=== PATIENT | female | born 1980 | race Caucasian/White ===

== ENCOUNTER 2024-03-23 10:05 | Outpatient (AMB) | payer OTHER, SELFPAY ==
[2024-03-23 09:34] VITALS: BP 140/80; PULSE 88; RESP 19; O2SAT 98; BMI 33.8
--- NOTE | 2024-03-23 10:24 | MHC.AM.SUB ---
Vital Signs 03/23/24 09:34 Height 5 ft 7 in Weight 216 lb BMI 33.8 BP 140/80 H Blood Pressure Location Rt brachial Position Sitting Respiration 19 Pulse 88 Pulse Source Pulse Oximeter Pulse Oximetry (%) 98 Intake Visit Reasons: Intake Allergies Penicillins [PENICILLINS] Allergy (Severe, Unverified 02/16/20 18:03) HIVES HPI HPI Intake: Details: Patient presents for evaluation and continuation of treatment for OUD She reports that she has been at patient at [facility] for some time now and looking to transfer care She is currently prescribed Zubsolv 5.7-1.4mg Has been on this medication for 3 years due to not tolerating suboxone (severe constipation and stomach issues) Substance use history obtained by RN and reviewed with patient --in remission from substance use for several years Medical History: engaged with primary care at [facility] reports hypertension diagnosis Labs completed on 12/25/23 via primary care SGOT 34 SGPT 64 Alk phos 71 tsh 2.96 Unclear BH diagnosis, but she reports being stable on current medication regimen Review of Systems Const Reports as per HPI and Reports no additional complaints Physical Exam Vital Signs: Last Vital Signs Pulse 88 03/23/24 09:34 Resp 19 03/23/24 09:34 BP 140/80 H 03/23/24 09:34 Pulse Ox 98 03/23/24 09:34 BMI result Body Mass Index 33.8 Const General: cooperative and healthy appearing Results Reviewed Results Reviewed: Laboratory Last Values POC Urine Buprenorphine Positive 03/23/24 09:56 POC Urine Morphine Negative 03/23/24 09:56 POC Urine Oxycodone Negative 03/23/24 09:56 POC Urine Methadone Negative 03/23/24 09:56 POC Urine Propoxyphene Negative 03/23/24 09:56 POC Urine Barbiturates Negative 03/23/24 09:56 POC U Tricyclic Antidpr Negative 03/23/24 09:56 POC Urine PCP Negative 03/23/24 09:56 POC Ur Amphetamines Negative 03/23/24 09:56 POC Ur Methamphetamine Negative 03/23/24 09:56 POC Urine MDMA Negative 03/23/24 09:56 POC Ur Benzodiazepine Positive 03/23/24 09:56 POC Urine Cocaine Negative 03/23/24 09:56 POC Ur Marijuana (THC) Positive 03/23/24 09:56 Assessment & Plan Assessment & Plan (1) Opioid use disorder, moderate, in sustained remission: Code(s): F11.21 - Opioid dependence, in remission Category: Medical Plan: continue Zubsolv at current dose follow up 4 weeks Orders: Orders AMB 14 Panel Urine Drug Screen 03/23/24 Z51.81 - Encounter for therapeutic drug level monitoring Medications: New buprenorphine-naloxone 5.7-1.4 mg (Zubsolv) 1 tab sublingual DAILY 30 tabs 0RF MAT Intake Nursing Intake Reason for visit: Transitioning care from another clinic to ours Are you currently using?: No What are you taking?: patient has not used in >5 years What is your source of income?: 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 [employer] What is your current relationship status?: Single Current PCP: Liliane Quiroz Date of last visit: last month Referral Source: Co worker who comes here as well Details: Substance Abuse History Substance Abuse History (includes route, frequency and quantity): Cocaine ( 7 years ago ) and Marijuana Social History Domestic Violence concerns: No Children: 2 children 20 years old and 21 years old Do you have a support system?: yes states her children are Current mode of transportation?: Car/Self Where are you currently residing?: Home LMP: March of 2024 Are you using contraception?: Yes (Has an IUD) IV Drug Use Have you ever shared needles?: No Have you ever belonged to a needle exchange program?: No Do you buy needles at a pharmacy?: No Have you ever overdosed?: No Have you ever been hospitalized for an overdose?: No Was Naloxone administered?: No Recovery History Have you had any periods of recovery?: Yes What is your longest time in recovery?: 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 If so, who?: Abdoulaye Adkins at [facility] for therapy BH diagnosis: Depression, Anxiety, OCD and ADHD History of other addictive behavior: Denies History of inpatient psychiatric hospitalization? If so, how many? Most Recent? Where?: No History of self harming thoughts?: No History of homicidal or suicidal intentions?: No Medical Conditions Endocarditis?: No Skin Infection: No Seizure related to withdrawal or overdose: No Head or brain injury: No Hepatitis A (if yes, have you been treated?): No Hepatitis B (if yes, have you been treated?): No Hepatitis C (if yes, have you been treated?): No HIV (if yes, have you been treated?): No TB (if yes, have you been treated?): No Other: Yes (Newly diagnosed HTN, Hx of gallbladder removal) Legal History History of incarceration: No Currently on parole or probation: No Court mandated programs: No Pending court cases: No DCF involvement: No
== END 2024-03-23 10:56 | disposition home or self-care (01) ==
PROVIDERS: PCP Internal Medicine; Visit Provider Nurse Practitioner Psychiatric/Mental Health
DX: F11.21 Opioid dependence, in remission (principal)
CPT/HCPCS: 99214

== ENCOUNTER → 2024-03-23 10:05 | Outpatient (BNVA) | payer OTHER, SELFPAY | PROVIDERS: PCP Internal Medicine; Visit Provider Nurse Practitioner Psychiatric/Mental Health | DX: F11.21 Opioid dependence, in remission (principal) | CPT/HCPCS: 80307; 99212 ==

== ENCOUNTER 2024-04-20 11:01 | Outpatient (AMB) | payer OTHER, SELFPAY ==
[2024-03-30 09:27] VITALS: BP 140/80; PULSE 88; RESP 20; O2SAT 98
--- NOTE | 2024-03-30 09:27 | MHC.AM.SUB ---
Vital Signs 03/30/24 09:27 BP 140/80 H Blood Pressure Location Lt brachial Position Sitting Respiration 20 Pulse 88 Pulse Source Pulse Oximeter Pulse Oximetry (%) 98 Oxygen Delivery Method Room Air Intake Visit Reasons: MAT Office Allergies Penicillins [PENICILLINS] Allergy (Severe, Unverified 02/16/20 18:03) HIVES
--- NOTE | 2024-04-20 11:08 | A.OFFVISCC_ITS ---
Vital Signs 03/30/24 09:27 BP 140/80 H Blood Pressure Location Lt brachial Position Sitting Respiration 20 Pulse 88 Pulse Source Pulse Oximeter Pulse Oximetry (%) 98 Oxygen Delivery Method Room Air Intake Visit Reasons: MAT Office Allergies Penicillins [PENICILLINS] Allergy (Severe, Unverified 02/16/20 18:03) HIVES HPI HPI MAT Office: Details: Patient presents for follow up Saw new psychiatrist and they changed Celexa to Zoloft 50mg Clonidine 0.1mg QHS --updated in med list [facility] in [place] for services No issues related to Zubsolv. Spent time reviewing ongoing anxiety and strategies for addressing this--provided patient with anxiety workbook Review of Systems Const Reports as per HPI and Reports no additional complaints Physical Exam Vital Signs: Last Vital Signs Pulse 88 03/30/24 09:27 Resp 20 03/30/24 09:27 BP 140/80 H 03/30/24 09:27 Pulse Ox 98 03/30/24 09:27 Oxygen Delivery Method Room Air 03/30/24 09:27 Const General: cooperative, healthy appearing and well groomed Nutritional Appearance: average body habitus Orientation/consciousness: patient oriented x3 Limitations: no limitations Neuro General: patient oriented x3 Psych Appearance: well kempt Speech and movement: Clear speech present and Pressured speech present Affect: Animated affect present Attitude: cooperative Thought process: Tangential thought process present Insight: Good insight present (Psych) Judgement: Good judgement present (Psych) Assessment & Plan Assessment & Plan (1) Opioid use disorder, moderate, in sustained remission: Code(s): F11.21 - Opioid dependence, in remission Category: Medical Plan: * continue zubsolv at current dose * follow up 4 weeks Medications: Refilled buprenorphine-naloxone 5.7-1.4 mg (Zubsolv) 1 tab sublingual DAILY 30 tabs 0RF
== END 2024-04-20 11:30 | disposition home or self-care (01) ==
PROVIDERS: PCP Internal Medicine; Visit Provider Nurse Practitioner Psychiatric/Mental Health
DX: F11.21 Opioid dependence, in remission (principal)
CPT/HCPCS: 99213

== ENCOUNTER → 2024-04-20 11:01 | Outpatient (BNVA) | payer OTHER, SELFPAY | PROVIDERS: PCP Internal Medicine; Visit Provider Nurse Practitioner Psychiatric/Mental Health | DX: F11.21 Opioid dependence, in remission (principal) | CPT/HCPCS: 99212 ==

== ENCOUNTER 2024-05-18 09:22 | Outpatient (AMB) | payer OTHER, SELFPAY ==
--- NOTE | 2024-05-18 09:29 | A.OFFVISCC_ITS ---
Intake Visit Reasons: MAT Allergies Penicillins [PENICILLINS] Allergy (Severe, Unverified 02/16/20 18:03) HIVES HPI HPI MAT: Details: Patient presents for follow up Currently prescribed Zubsolv 5.7-1.4mg No issues related to medication Spent some time reviewing strategies to address anxiety and panic sx reviewed reframing negative self talk still seeing therapist and psychiatrist--adjusting medications. Review of Systems Const Reports as per HPI and Reports no additional complaints Physical Exam Const General: cooperative, healthy appearing and well groomed Nutritional Appearance: average body habitus Orientation/consciousness: patient oriented x3 Limitations: no limitations Neuro General: patient oriented x3 Psych Appearance: well kempt Speech and movement: Clear speech present and Pressured speech present Affect: Animated affect present Attitude: cooperative Thought process: Tangential thought process present Insight: Good insight present (Psych) Judgement: Good judgement present (Psych) Assessment & Plan Assessment & Plan (1) Opioid use disorder, moderate, in sustained remission: Code(s): F11.21 - Opioid dependence, in remission Category: Medical Plan: * continue zubsolv at current dose * follow up 8 weeks Medications: Refilled buprenorphine-naloxone 5.7-1.4 mg (Zubsolv) 1 tab sublingual DAILY 30 tabs 1RF
== END 2024-05-18 10:27 | disposition home or self-care (01) ==
PROVIDERS: PCP Internal Medicine; Visit Provider Nurse Practitioner Psychiatric/Mental Health
DX: F11.21 Opioid dependence, in remission (principal)
CPT/HCPCS: 99213

== ENCOUNTER → 2024-05-18 09:22 | Outpatient (BNVA) | payer OTHER, SELFPAY | PROVIDERS: PCP Internal Medicine; Visit Provider Nurse Practitioner Psychiatric/Mental Health | DX: F11.21 Opioid dependence, in remission (principal); Z79.899 Other long term (current) drug therapy | CPT/HCPCS: 99212 ==

== ENCOUNTER 2024-08-10 11:09 | Outpatient (AMB) | payer OTHER, SELFPAY ==
--- NOTE | 2024-08-10 11:29 | A.OFFVISCC_ITS ---
Intake Visit Reasons: MAT Office Allergies Penicillins [PENICILLINS] Allergy (Severe, Unverified 02/16/20 18:03) HIVES HPI HPI MAT Office: Details: Patient presents for follow up Currently prescribed Zubsolv 5.7-1.4mg daily Tolerating current dose Does not a refill at this time Continues to see therapist and psychiatrist No questions or concerns at this time Review of Systems Const Reports as per HPI Psych Reports anxiety and Reports difficulty concentrating Physical Exam Const General: cooperative, healthy appearing and well groomed Nutritional Appearance: average body habitus Orientation/consciousness: patient oriented x3 Limitations: no limitations Neuro General: patient oriented x3 Psych Appearance: well kempt Speech and movement: Clear speech present and Pressured speech present Affect: Animated affect present Attitude: cooperative Thought process: Tangential thought process present Insight: Good insight present (Psych) Judgement: Good judgement present (Psych) Assessment & Plan Assessment & Plan (1) Opioid use disorder, moderate, in sustained remission: Code(s): F11.21 - Opioid dependence, in remission Category: Medical Plan: * continue zubsolv at current dose * follow up 8 weeks
--- OUTSIDE RECORDS SUMMARY | 2024-08-10 13:09 | XMS_ITS | Clinical Summary ---
Author Organization [address] Address [address] [place] [address] Phone Care Team Providers Care Rubber Compounder Mixer Name Role Phone Kishore Dockery MD Primary Care Provider Allergies Active Allergy Reactions Criticality Noted Date Comments Misoprostol 11/13/2016 Penicillin G Potassium Hives 02/26/2006 Sulfamethoxazole Hives High 03/18/2023 Sulfamethoxazole-Trimethoprim Hives High 2010 Trimethoprim Hives High 03/18/2023 Medications famotidine (PEPCID) 20 mg tablet TAKE 1 TABLET BY MOUTH TWICE A DAY 180 tablet 1 04/08/20 24 Active clonazePAM (KlonoPIN) 0.5 mg disintegrating tablet Take 1 tablet (0.5 mg total) by mouth 1 (one) time each day. Active amLODIPine-benazep ril (LotreL) 5-10 mg per capsule Take 1 capsule by mouth 1 (one) time each day. 30 capsule 11 04/12/20 24 025 Active mirtazapine (REMERON) 7.5 mg tablet TAKE 1 TABLET BY MOUTH EVERY DAY AT BEDTIME FOR 30 DAYS 03/25/20 23 Active buprenorphine-nalo xone (Zubsolv) 8.6-2.1 mg tablet, sublingual DISSOLVE 1 T UNT QD 02/23/20 Active copper (ParaGard T 380A) 380 square mm IUD 1 each by intrauterine route. 06/08/19 Active cloNIDine (CATAPRES) 0.1 mg tablet Take 1 tablet (0.1 mg total) by mouth 2 (two) times a day if needed. 03/30/20 Active Zoloft 50 mg tablet Take 1 tablet (50 mg total) by mouth 1 (one) time each day. 04/03/20 Active Active Problems Problem Noted Date Diagnosed Date Vitamin D deficiency 12/09/2023 HTN (hypertension) 02/13/2023 Mixed obsessional thoughts and acts 02/18/2018 Drug overdose 10/07/2017 Overview (04/19/2024): ER visit after her friend gave her some pills . + amphetamines with tox screen at ER. Elevated liver enzymes 05/21/2016 Bilateral carpal tunnel syndrome 05/20/2016 Anxiety 09/27/2012 Constipation 09/27/2012 Depression 09/27/2012 Opiate dependence 05/26/2011 Insomnia 03/15/2010 Moderate cervical dysplasia, histologically conf irmed 01/09/2010 Overview (04/19/2024): Laser Cervix 01/08, repeat Pap 04/10 ASCUS, 11/09 CAILIN 1, colpo benign and ECC neg repeat Pap every six months. Pap 08/2011 normal. Pap 03/2012 normal and HPV negative. Pap normal 09/27/12, repeat yearly for now Overweight (BMI 25.0-29.9) 01/29/2009 Heartburn 03/06/2008 Tobacco use disorder 02/07/2007 Encounters Date Type Department Care Team Description 06/27/2024 Telephone [facility] [address] [place] [address] Kishore Dockery MD from Last 3 Months Immunizations Name Administration Dates Next Due H1N1 Inj Preservative Free 04/12/2009 Influenza Quadravalent, MDCK , 0.5ml, preservative free (Flucelvax) 6mo and older 04/01/2023,03/17/2022 Influenza trivalent, 0.5mL, preservative free (Fluarix; FluLaval; Fluzone) ages 6mo and older (Afluria) 3 years and older 05/20/2016,02/22/2014,03/31/2012,2009 MMR, measles mumps and rubel la Live (Priorix; M-M-R II) 12mo and older 11/12/2006 PPD Test 11/12/2006 Td Tetanus diptheria (Tdvax) 7yo and older 02/26/2006 Tdap Tetanus diptheria acell ular pertussis (Boostrix; Adacel) 7yo and older 01/12/2014,08/20/2010 Surgical History Surgery Date Site/Laterality Comments CHOLECYSTECTOMY PROCEDURE: [place] LAPAROSCOPY SURG CHOLECYSTECTOMY; COMMENT: 2008 LASER ABLATION OF THE CERVIX 01/21/10 PROCEDURE: [place] CAUTERY CERVIX LASER ABLATION; COMMENT: Laser vaporization HGSIL OTHER SURGICAL HISTORY PROCEDURE: HISTORICAL D&C Medical History Medical History Date Comments Esophageal reflux DX:Esophageal reflux Anxiety state, unspecified DX:An xiety state, unspecified; COMMENT: sees Therapist/Psychiatrist Opiate dependence ([facility]) 05/26/2011 DX:O piate dependence ([facility]) Family History Medical History Relation Name Comments Other: dvt Daughter 1 Heart attack Father early fifties Hyperlipidemia Father Hypertension Father Other cancer Father melanoma Other: diverticulosis Mother Other: dvt Mother Breast cancer Neg Hx Colon cancer Neg Hx Ovarian cancer Neg Hx Uterine cancer Neg Hx Relation Name Status Comments Daughter 1 Alive 2002; A&W Daughter 2 Alive 2013; A&W Father Alive htn, cholestero l, mi at age 50 - patient is an only child Maternal Grandfather Maternal Grandmother Mother Alive diverticulitis Paternal Grandfather Paternal Grandmother Social History Tobacco Use Types Packs/Day Years Used Date Smoking Tobacco: Every Day Cigarettes Started: 06/01/1999; Last attempted to quit: 06/01/2021 Smokeless Tobacco: Current Tobacco Cessation:Ready to Q uit: Not Asked; Counseling Given: Not Answered Alcohol Use Standard Drinks/Week Comments Not Currently 0 (1 standard drink = 0.6 oz pur e alcohol) Housing Instability Answer Date Recorde d Are you worried that in the next 2 months you may not have stable housing? No 04/19/2024 Food Access & Nutrition Answer Date Rec orded Do you have access to a vari ety of food including fruits and vegetables? Yes 04/19/2024 Access to Healthcare Answer Date Record ed Within the last 3 months, ho w many times did you visit the emergency department for your medical care? 0 04/19/2024 Health Literacy Answer Date Recorded How often do you need to hav e someone help you when you read instructions, pamphlets, or other written material from your doctor or pharmacy? Never 04/19/2024 Caregiver: How often do you need to have someone help you when you read instructions, pamphlets, or other written material from your doctor or pharmacy? Not on file 04/19/2024 Financial Risk Answer Date Recorded How hard is it for you to pa y for the very basics like food, housing, medical care, and air conditioning / heating? Hard 04/19/2024 Transportation Answer Date Recorded Has the lack of transportati on kept you from meetings, work, or from getting things needed for daily living? No Has the lack of transportati on kept you from medical appointments or from getting medications? No 04/19/2024 Social Isolation Answer Date Recorded How often do you feel lonely or isolated from those around you? Sometimes 04/19/2024 Food Risk Answer Date Recorded Within the past 12 months we worried whether our food would run out before we got money to buy more. Often true 04/19/2024 Within the past 12 months th e food we bought just didn't last and we didn't have money to get more. Often true 04/19/2024 Dependent Care Answer Date Recorded Do you need help finding or paying for care for your loved ones. For example, children's counselor or elderly care for an older adult? Patient declined 04/19/2024 Education Answer Date Recorded Do you think completing more education or training, like finishing a GED, going to college, or learning a trade, would be helpful for you? Patient declined 04/19/2024 Employment and Income Answer Date Recor ded During the last four weeks, have you been actively looking for work? Patient declined 04/19/2024 Living Situation Answer Date Recorded What is your living situation? 1 06/19/2023 Comments No Sex and Gender Information Value Date Recorded Sex Assigned at Female 04/19/2024 10:08 AM EST Legal Sex Female 9:17 AM EST Gender Identity Female 04/19/2024 10:08 AM EST Sexual Orientation Straight 04/19/2024 10 :08 AM EST Obstetrics History Last Filed Vital Signs Vital Sign Reading Time Taken Comments Blood Pressure 136/82 04/20/2024 8:59 AM EST Pulse 108 03/09/2024 10:29 AM EDT Temperature 37.1 ??C (98.7 ??F) 04/20/2024 8:59 AM ES T Respiratory Rate 15 04/20/2024 8:59 AM EST Oxygen Saturation - - Inhaled Oxygen Concentration - - Weight 98.9 kg (218 lb) 04/20/2024 8:59 AM EST Height 172.7 cm (5' 8 ) 04/20/2024 8:59 AM EST Body Mass Index 33.15 04/20/2024 8:59 AM EST Plan of Treatment Health Maintenance Due Date Last Done Comments Breast Cancer Screening 1978 Hepatitis B Vaccines (1 of 3 - 19+ 3-dose series) 1997 Pneumococcal Vaccine: Pediatrics (0 to 5 Years) and At-Risk Patients (6 to 64 Years) (1 of 2 - PCV) 1997 Colorectal Cancer Screening: Colonoscopy 05/10/2022 HIV Screening 05/10/2022 DTaP,Tdap,and Td Vaccines (4 - Td or Tdap) 01/13/2024 01/12/2014, 08/20/2010, 02/26/2006 COVID-19 Vaccine ( - season) 2024 11/22/2020, 10/30/2020 Influenza Vaccine (#1) 2024 , 03/17/2022, 05/20/2016, Additional history exists Hypertension/CHF/CAD Annual BMP Blood Test 12/24/2024 12/25/2023, 12/25/2023, 12/09/2023 Depression Screening 04/19/2025 04/19/2024, 02/24/20 Social Influencers of Health Screening 04/19/2025 04/19/2024 Cervical Cancer Screening: HPV 02/14/2028 02/13/2023 Cholesterol Screening (Lipid Panel) 12/24/2028 12/25/2023, 12/25/2023 MMR Vaccines Aged Out 11/12/2006 No longer eligi ble based on patient's age to complete this topic Hepatitis C Screening Completed 03/17/2022 HIB Vaccines Aged Out No longer eligi ble based on patient's age to complete this topic HPV Vaccines Aged Out No longer eligi ble based on patient's age to complete this topic Hepatitis A Vaccines Aged Out No long er eligible based on patient's age to complete this topic IPV Vaccines Aged Out No longer eligi ble based on patient's age to complete this topic Meningococcal ACWY Vaccine Aged Out N o longer eligible based on patient's age to complete this topic Meningococcal B Vacine Aged Out No lo nger eligible based on patient's age to complete this topic RSV Immunization Patients Under 20 months Aged Out No longer eligible based on patient's age to complete this topic Varicella Vaccines Aged Out No longer eligible based on patient's age to complete this topic Procedures Procedure Name Priority Date/Time Associated Diagnosis Comments DEPRESSION SCREENING Routine 02/24/2024 ANNUAL BMP BLOOD TEST Routine 12/25/2023 LIPID PANEL Routine 12/25/2023 HPV Routine 02/13/2023 HEPATITIS C SCREENING Routine 03/17/2022 from Last 3 Months or Most Recently Relevant to Health Maintenance Results * Depression Screening (02/24/2024) Pathologist [facility] Depression Screening abstracted Historical Provider MD HEALTH MAINTENANCE Final Result * Annual BMP Blood Test (12/25/2023) Pathologist [facility] Annual BMP Blood Test abstracted Historical Provider MD HEALTH MAINTENANCE Final Result * (ABNORMAL) Lipid panel (12/25/2023) Pathologist [facility] LDL/HDL Ratio 4 0 - 4 Triglycerides 156(A) 0 - 150 mg/dL Cholesterol 196 0 - 200 mg/dL HDL 49 >=40 mg/dL LDL Cholesterol 116(A) 0 - 100 mg/dL Blood Venous blood specimen / Unknown Historical Provider LAB BLOOD ORDERABLES Oly l Result * Cervical Cancer Screening: HPV (02/13/2023) Pathologist [facility] Cervical Cancer Screening: HPV negative, abstracted Historical Provider HEALTH MAINTENANCE Final Result * Hepatitis C Screening (03/17/2022) Pathologist [facility] Hepatitis C Screening abstracted Historical Provider HEALTH MAINTENANCE Final Result from Last 3 Months or Most Recently Relevant to Health Maintenance Insurance [facility] [employer] Care Teams Rubber Compounder Mixer Relationship Specialty Start Date End Date Kishore Dockery MD [address] [place] [id number] PCP - General 05/05/23
--- OUTSIDE RECORDS SUMMARY | 2024-08-10 13:09 | XMS_ITS | Clinical Summary ---
Author Organization [facility] Address [address] [place] [address] Care Team Providers Care Vice President Quality Name Role Phone Beba Trujillo MD Primary Care Provider [phone] Allergies Active Allergy Reactions Criticality Noted Date Comments Penicillins 07/30/2022 Medications Medication Sig Dispensed Refills Start Date End Date Status citalopram (CeleXA) 20 MG tablet Take 1 tablet (20 mg total) by mouth daily. 0 Active vitamin D3 (cholecalciferol) 25 MCG (1000 UT) tablet Take 1 tablet (25 mcg total) by mouth daily. 0 Active amLODIPine (NORVASC) tablet 5 mg Take 2 tablets (10 mg total) by mouth daily. Amlodipine/benazapri l combination 0 Active Active Problems No known active problems Social History Tobacco Use Types Packs/Day Years Used Date Smoking Tobacco: Former Cigarettes 2021 Nicotine Inhalation Smokeless Tobacco: Current Tobacco Cessation:Ready to Q uit: Not Asked; Counseling Given: Not Answered Alcohol Use Standard Drinks/Week Comments Not Currently 0 (1 standard drink = 0.6 oz pur e alcohol) ONLY IN YOUNGER YEARS Sex and Gender Information Value Date Recorded Sex Assigned at Not on file Gender Identity Not on file Sexual Orientation Not on file Job Start Date Occupation Industry Not on file Not on file Not on file Last Filed Vital Signs Vital Sign Reading Time Taken Comments Blood Pressure 139/69 07/30/2022 2:33 PM EST Pulse 84 07/30/2022 2:33 PM EST Temperature 36.8 ??C (98.3 ??F) 07/30/2022 2:33 PM ES T Respiratory Rate - - Oxygen Saturation 100% 07/30/2022 2:33 PM EST Inhaled Oxygen Concentration - - Weight 91 kg (200 lb 9.6 oz) 07/30/2022 2:33 PM EST Height 172.7 cm (5' 8 ) 07/30/2022 2:33 PM EST Body Mass Index 30.5 07/30/2022 2:33 PM EST Plan of Treatment Health Maintenance Due Date Last Done Comments Hepatitis B Vaccines (1 of 3 - 3-dose series) 1978 Hepatitis C Screening 1978 COVID-19 Vaccine (#1) 03/15/1979 Depression Screening 1990 Preventative Health Evaluation 1996 Cervical Cancer Screening (Pap Smear) 09/14/1999 Colon Cancer Screening (Colonoscopy) 09/14/2023 DTap / Tdap / Td (3 - Td or Tdap) 01/13/2024 01/12/2014, 08/20/2010, 02/26/2006 Influenza Vaccine (#1) 2024 2, 05/20/2016, 02/22/2014, Additional history exists Pneumococcal Vaccine Aged Out No long er eligible based on patient's age to complete this topic RSV Ped < 20 months Aged Out No longe r eligible based on patient's age to complete this topic Care Teams Vice President Quality Relationship Specialty Start Date End Date Beba Trujillo MD PCP - General Internal Medicine 07/30/22
== END 2024-08-10 11:47 | disposition home or self-care (01) ==
PROVIDERS: PCP Internal Medicine; Visit Provider Nurse Practitioner Psychiatric/Mental Health
DX: F11.21 Opioid dependence, in remission (principal)
CPT/HCPCS: 99213

== ENCOUNTER → 2024-08-10 11:09 | Outpatient (BNVA) | payer OTHER, SELFPAY | PROVIDERS: PCP Internal Medicine; Visit Provider Nurse Practitioner Psychiatric/Mental Health | DX: F11.21 Opioid dependence, in remission (principal) | CPT/HCPCS: 99212 ==

== ENCOUNTER 2024-10-19 15:31 | Outpatient (AMB) | payer OTHER, SELFPAY ==
--- OUTSIDE RECORDS SUMMARY | 2024-10-19 15:33 | XMS_ITS | Clinical Summary ---
Author Organization [facility] Address [address] [place] [address] Care Team Providers Care Ammunition Assembly I Laborer Name Role Phone Beba Trujillo MD Primary Care Provider [phone] Allergies Active Allergy Reactions Criticality Noted Date [...] age to complete this topic Care Teams Ammunition Assembly I Laborer Relationship Specialty Start Date End Date Beba Trujillo MD PCP - General Internal Medicine 07/30/22
--- OUTSIDE RECORDS SUMMARY | 2024-10-19 15:33 | XMS_ITS | Clinical Summary ---
Author Organization [address] Address [address] [place] [address] Phone Care Team Providers Care Cardiac Nurse Name Role Phone Kishore Dockery MD Primary [...] mouth 1 (one) time each day. 04/03/20 24 Active ibuprofen (ADVIL,MOTRIN) 600 mg tablet Take 1 tablet (600 mg total) by mouth every 8 (eight) hours if needed for moderate pain. for pain 90 tablet 1 10/14/19 Active Active Problems Problem Noted Date Diagnosed Date Vitamin D deficiency 12/09/2023 HTN (hypertension) 02/13/2023 Mixed obsessional thoughts and acts 02/18/2018 Drug overdose 10/07/2017 Overview (04/19/2024): ER visit after her friend gave her some pills . + amphetamines with tox screen at ER. Elevated liver enzymes 05/21/2016 Bilateral carpal tunnel syndrome 05/20/2016 Anxiety 09/27/2012 Constipation 09/27/2012 Depression 09/27/2012 Opiate dependence ([facility] V24, [facility] V28) Insomnia 03/15/2010 Moderate cervical dysplasia, histologically conf irmed 01/09/2010 Overview (04/19/2024): Laser Cervix 01/08, repeat Pap 04/10 ASCUS, 11/09 CAILIN 1, colpo benign and ECC neg repeat Pap every six months. Pap 08/2011 normal. Pap 03/2012 normal and HPV negative. Pap normal 09/27/12, repeat yearly for now Overweight (BMI 25.0-29.9) 01/29/2009 Heartburn 03/06/2008 Tobacco use disorder 02/07/2007 Immunizations Name Administration Dates Next Due H1N1 [...] History Surgery Date Site/Laterality Comments CHOLECYSTECTOMY PROCEDURE: [place] LAPAROSCOPY SURG CHOLECYSTECTOMY; COMMENT: 2008 LASER ABLATION OF THE CERVIX 01/21/10 PROCEDURE: [place] CAUTERY CERVIX LASER ABLATION; COMMENT: Laser vaporization HGSIL OTHER SURGICAL HISTORY PROCEDURE: HISTORICAL D&C Medical History Medical History Date Comments Esophageal reflux DX:Esophageal reflux Anxiety state, unspecified DX:An xiety state, unspecified; COMMENT: sees Therapist/Psychiatrist Opiate dependence ([facility] V 24, [facility] V28) 05/26/2011 DX:Opiate dependence ([facility]) Family History Medical History Relation Name Comments [...] care for your loved ones. For example, professor of early childhood education or elderly care for an older adult? [...] 04/20/2024 8:59 AM EST Plan of Treatment Upcoming Encounters Date Type Department Care Team (Late st Contact Info) Description 11/09/2024 3:45 PM EDT Office Visit Adult Medicine [address] [address] Kishore Dockery MD [address] [place] [id number] Health Maintenance Due Date Last Done Comments Breast Cancer Screening 1978 Hepatitis A Vaccines (1 of 2 - Risk 2-dose series) 1997 Hepatitis B Vaccines (1 of 3 - 19+ 3-dose series) 1997 Pneumococcal Vaccine: Pediatrics (0 to 5 Years) and At-Risk Patients (6 to 64 Years) (1 of 2 - PCV) 1997 Colorectal Cancer Screening: Colonoscopy 05/10/2022 HIV Screening 05/10/2022 DTaP,Tdap,and Td Vaccines (4 - Td or Tdap) 01/13/2024 01/12/2014, 08/20/2010, 02/26/2006 COVID-19 Vaccine (3 - season) 2024 11/22/2020, 10/30/2020 Hypertension/CHF/CAD Annual BMP Blood Test 12/24/2024 12/25/2023, 12/25/2023, 12/09/2023 Influenza Vaccine (Season Ended) 2025 04/01/2023, 03/17/2022, 05/20/2016, Additional history exists Depression Screening 04/19/2025 04/19/2024, 02/24/20 24 Social Influencers of Health Screening 04/19/2025 04/19/2024 [...] age to complete this topic Meningococcal B Vaccine Aged Out No l onger eligible based on patient's age to complete [...] Health Maintenance Results * Depression Screening (02/24/2024) Depression Screening abstracted us Historical Provider MD HEALTH MAINTENANCE Final Result * Annual BMP Blood Test (12/25/2023) Annual BMP Blood Test abstracted [facility] Provider HEALTH MAINTENANCE Final Result * (ABNORMAL) Lipid panel (12/25/2023) [facility] LDL/HDL Ratio 4 0 - 4 Triglycerides 156(A) 0 - 150 mg/dL Cholesterol 196 0 - 200 mg/dL HDL 49 >=40 mg/dL LDL Cholesterol 116(A) 0 - 100 mg/dL Blood Venous blood specimen / Unknown Result [facility] Provider LAB BLOOD ORDERABLES Oly l Result * Cervical Cancer Screening: HPV (02/13/2023) [facility] Cervical Cancer Screening: HPV negative, abstracted Result [facility] Provider HEALTH MAINTENANCE Final Result * Hepatitis C Screening (03/17/2022) [facility] Hepatitis C Screening abstracted Result [facility] Provider HEALTH MAINTENANCE Final Result from Last 3 Months or Most Recently Relevant to Health Maintenance Insurance [facility] [employer] Care Teams Cardiac Nurse Relationship Specialty Start Date End Date Kishore Dockery MD [address] [place] [id number] PCP - General 05/05/23
[2024-10-19 15:37] VITALS: PULSE 126; O2SAT 98
--- NOTE | 2024-10-19 15:37 | MHC.OFFVIS ---
Vital Signs 10/19/24 15:37 Pulse 126 H Pulse Source Pulse Oximeter Pulse Oximetry (%) 98 Oxygen Delivery Method Room Air Intake Visit Reasons: mat Allergies Penicillins [PENICILLINS] Allergy (Severe, Verified 10/19/24 15:37) HIVES Sulfa (Sulfonamide Antibiotics) Allergy (Unknown, Verified 10/19/24 15:37) Unknown HPI HPI mat: Details: She feels well She has no complaints She is waiting for Zubsolv approval. Review of Systems Const All systems reviewed & are unremarkable except as noted in HPI and below Physical Exam Vital Signs: Last Vital Signs Pulse 126 H 10/19/24 15:37 Pulse Ox 98 10/19/24 15:37 Oxygen Delivery Method Room Air 10/19/24 15:37 Const General: cooperative Assessment & Plan Assessment & Plan (1) Opioid use disorder, moderate, in sustained remission: Comment: She is doing well,no cravings Code(s): F11.21 - Opioid dependence, in remission Category: Medical Plan: Continue current medication,Sulema HOWARD sent See as scheduled two months. Medications: New buprenorphine-naloxone 5.7-1.4 mg (Zubsolv) 1 tab sublingual DAILY 30 days 30 tabs 1RF buprenorphine-naloxone 5.7-1.4 mg (Zubsolv) 1 tab sublingual DAILY 30 tabs 1RF 30 days buprenorphine-naloxone 5.7-1.4 mg (Zubsolv) 1 tab sublingual DAILY 30 days 30 tabs 1RF Refilled buprenorphine-naloxone 8-2 mg (Suboxone) 1 film sublingual BID 14 ea 0RF 1 week Coding Level of Care Code Est Pt Level 3 (71668) Diagnoses Opioid use disorder, moderate, in sustained remission F11.21
== END 2024-10-19 16:28 ==
LOC: HO.HCC 15:32
PROVIDERS: PCP Internal Medicine; Visit Provider Internal Medicine
DX: F11.21 Opioid dependence, in remission (principal)
CPT/HCPCS: 99213

== ENCOUNTER → 2024-10-19 15:31 | Outpatient (BNVA) | payer OTHER, SELFPAY | PROVIDERS: PCP Internal Medicine; Visit Provider Internal Medicine | DX: F11.21 Opioid dependence, in remission (principal); Z51.81 Encounter for therapeutic drug level monitoring | CPT/HCPCS: 99212 ==

== ENCOUNTER 2024-12-14 15:44 | Outpatient (AMB) | payer OTHER, SELFPAY ==
--- OUTSIDE RECORDS SUMMARY | 2024-12-14 10:45 | XMS_ITS | Encounter Summary ---
Author Organization [employer] Address [address] [place] [address] Care Team Providers Care Home Therapy Clinician Name Role Phone Kishore Dockery MD Primary Care Provider [phone] Reason for Referral * Imaging (Routine) - Authorized Specialty Diagnoses / Procedures Referred By Moises t Referred To Contact Radiology Diagnoses Encounter for screening mammogram for malignant neoplasm of breast Procedures [facility] Mammo Digital Screening w Agueda Medel PA [address] [place] [id number] Phone: tel: fax: [address] Phone: tel: Referral ID Status Reason Start Date Expiration Date V isits Requested Visits Authorized [id number] Authorized 12/14/2024 12/14/2025 1 1 Reason for Visit * Reason Comments Follow-up Hypertension Encounter Details Date Type Department Care Team ([facility] st Contact Info) Description 12/14/2024 10:45 AM EDT Office Visit Adult Medicine [address] [place] [address] Agueda Matos PA [address] [place] [address] Other secondary hypertension (Primary Dx); Obesity (BMI 30.0-34.9); Irritant contact dermatitis, unspecified trigger; Mixed hyperlipidemia; Encounter for screening mammogram for malignant neoplasm of breast; Anxiety and depression; Screening for malignant neoplasm of colon; Tobacco use disorder Social History Tobacco Use Types Packs/Day Years [...] care for your loved ones. For example, special needs child caregiver or elderly care for an older adult? [...] Orientation Straight 04/19/2024 10 :08 AM EST documented as of this encounter Last Filed Vital Signs Vital Sign Reading Time Taken Comments Blood Pressure 132/78 12/14/2024 10:46 AM EDT de clined Pulse 86 12/14/2024 10:46 AM EDT Temperature 37.5 C (99.5 F) 12/14/2024 10:46 AM EDT Respiratory Rate 16 12/14/2024 10:46 AM EDT Oxygen Saturation - - Inhaled Oxygen Concentration - - Weight 100 kg (221 lb) 12/14/2024 10:46 AM EDT Height 175.3 cm (5' 9 ) 12/14/2024 10:46 AM EDT Body Mass Index 32.64 12/14/2024 10:46 AM EDT documented in this encounter Ordered Prescriptions Prescription Sig Dispense Quantity Refills Last Filled Start Date End Date semaglutide (Wegovy) 0.25 mg/0.5 mL injection penIndications:Other secondary hypertension,Obesity (BMI 30.0-34.9),Mixed hyperlipidemia Inject 0.25 mg under the skin every 7 (seven) days. 4 Pen 12/14/2024 documented in this encounter Progress Notes * LEE Cunningham - 12/14/2024 10:45 AM EDT CHIEF COMPLAINT: Follow-up and Hypertension IDENTIFIER: Louisa Deleon is a 44 y.o. old female. Past medical history: hypertension, anxiety and depression, on Suboxone therapy, GERD, asthma, chronic smoker History of Present Illness The patient presents for evaluation of anxiety, depression, hypertension, weight management, contact dermatitis, nicotine dependence, and health maintenance. Anxiety and Depression - Anxiety and depression are under control with psychiatrist follow-up at [facility]. - Zoloft increased to 100 mg, helpful but still experiences less frequent panic attacks with increased body temperature. Hypertension - Taking amlodipine-benazepril 5-10 mg daily. - Significant stress may affect blood pressure. - Not monitoring BP at home due to fear of incorrect readings. Weight Management - Considering resuming Wegovy for weight loss. - Engaging in walking and swimming. - Previously used Wegovy for a month but discontinued due to unavailability. Contact Dermatitis - Developed rash on arm, likely contact dermatitis, worsens with heat exposure, affecting tattoo. - Skin tag on arm, noticeable after swimming, not itchy or raised. - Took quarter of prednisone tablet, helped. Nicotine Dependence - Using nicotine-free vapes, curious about benefits. Tobacco - Using nicotine-free vapes. GYNECOLOGICAL HISTORY - Cycle Length: 25 to 35 days - Frequency and Flow: Heavier than usual [facility] in [place] [facility] maintenance reviewed. She is up to with pap smear. She cannot tolerate colonoscopy prep in the past and cologuard ordered. ROS: See HPI PAST MEDICAL HISTORY: Patient Active Problem List Diagnosis Date Noted Vitamin D deficiency 12/09/2023 HTN (hypertension) 02/13/2023 Mixed obsessional thoughts and acts 02/18/2018 Drug overdose 10/07/2017 Elevated liver enzymes 05/21/2016 Bilateral carpal tunnel syndrome 05/20/2016 Anxiety 09/27/2012 Constipation 09/27/2012 Depression 09/27/2012 Opiate dependence (CMS/HCC V24, CMS/HCC V28) 05/26/2011 Insomnia 03/15/2010 Moderate cervical dysplasia, histologically confirmed 01/09/2010 Overweight (BMI 25.0-29.9) 01/29/2009 Heartburn 03/06/2008 Tobacco use disorder 02/07/2007 Past Surgical History: Procedure Laterality Date CHOLECYSTECTOMY PROCEDURE: [place] LAPAROSCOPY SURG CHOLECYSTECTOMY; COMMENT: 2008 LASER ABLATION OF THE CERVIX 01/21/10 PROCEDURE: [place] CAUTERY CERVIX LASER ABLATION; COMMENT: Laser vaporization HGSIL OTHER SURGICAL HISTORY PROCEDURE: HISTORICAL D&C SOCIAL HISTORY: Social History Tobacco Use Smoking status: Every Day Current packs/day: 0.00 Types: Cigarettes Start date: 06/01/1999 Last attempt to quit: 06/01/2021 Years since quittin.5 Smokeless tobacco: Current Substance Use Topics Alcohol use: Not Currently FAMILY HISTORY: Family History Problem Relation Name Age of Onset Other (Other: diverticulosis) Mother Other (Other: dvt) Mother Hyperlipidemia Father Hypertension Father Heart attack Father early fifties Other cancer Father melanoma Other (Other: dvt) Daughter Breast cancer Neg Hx Colon cancer Neg Hx Ovarian cancer Neg Hx Uterine cancer Neg Hx Family Status Relation Name Status Mother Alive diverticulitis Father Alive htn, cholesterol, mi at age 50 - patient is an only child Daughter Alive 2002; [employer] Neg Hx (Not Specified) MGM MGF PGM PGF Daughter Alive 2013; [employer] No partnership data on file MEDICATIONS DISCONTINUED/REORDERED: There are no discontinued medications. ACTIVE MEDICATIONS: Outpatient Medications Marked as Taking for the 12/14/24 encounter (Office Visit) with LEE Cunningham Medication Sig Dispense Refill amLODIPine-benazepril (LotreL) 5-10 mg per capsule Take 1 capsule by mouth 1 (one) time each day. 30 capsule 11 buprenorphine-naloxone (Zubsolv) 8.6-2.1 mg tablet, sublingual DISSOLVE 1 T UNT QD clonazePAM (KlonoPIN) 0.5 mg disintegrating tablet Take 1 tablet (0.5 mg total) by mouth 1 (one) time each day. cloNIDine (CATAPRES) 0.1 mg tablet Take 1 tablet (0.1 mg total) by mouth 2 (two) times a day if needed. copper (ParaGard T 380A) 380 square mm IUD 1 each by intrauterine route. famotidine (PEPCID) 20 mg tablet TAKE 1 TABLET BY MOUTH TWICE A DAY 180 tablet 1 ibuprofen (ADVIL,MOTRIN) 600 mg tablet Take 1 tablet (600 mg total) by mouth every 8 (eight) hours if needed for moderate pain. for pain 90 tablet 1 mirtazapine (REMERON) 7.5 mg tablet TAKE 1 TABLET BY MOUTH EVERY DAY AT BEDTIME FOR 30 DAYS Zoloft 50 mg tablet Take 1 tablet (50 mg total) by mouth 1 (one) time each day. ALLERGIES: Allergies Allergen Reactions Sulfamethoxazole Hives Sulfamethoxazole-Trimethoprim Hives Trimethoprim Hives Misoprostol Penicillin G Potassium Hives PHYSICAL EXAM: Vitals: 12/14/24 1046 BP: 132/78 Pulse: 86 Resp: 16 Temp: 37.5 ??C (99.5 ??F) Physical Exam Constitutional: Appearance: Normal appearance. She is not ill-appearing. Cardiovascular: Rate and Rhythm: Normal rate and regular rhythm. Heart sounds: No murmur heard. Pulmonary: Effort: Pulmonary effort is normal. Breath sounds: Normal breath sounds. No wheezing. Musculoskeletal: Right lower leg: No edema. Left lower leg: No edema. Neurological: Mental Status: She is alert. Psychiatric: Mood and Affect: Mood normal. Thought Content: Thought content normal. LABS: Results for orders placed or performed in visit on 04/19/24 Hepatitis C Screening Collection Time: 03/17/22 12:00 AM Result Value Ref Range Hepatitis C Screening abstracted Gonorrhea/Chlamydia Screening Collection Time: 02/13/23 12:00 AM Result Value Ref Range Gonorrhea/Chlamydia Screening abstracted Cervical Cancer Screening: HPV Collection Time: 02/13/23 12:00 AM Result Value Ref Range Cervical Cancer Screening: HPV negative, abstracted Pap Smear Collection Time: 02/13/23 12:00 AM Result Value Ref Range Pap smear negative, abstracted Lipid panel Collection Time: 12/25/23 12:00 AM Result Value Ref Range LDL/HDL Ratio 4 0 - 4 Triglycerides 156 (A) 0 - 150 mg/dL Cholesterol 196 0 - 200 mg/dL HDL 49 >=40 mg/dL LDL Cholesterol 116 (A) 0 - 100 mg/dL Hemoglobin A1c Collection Time: 12/25/23 12:00 AM Result Value Ref Range Hemoglobin A1C 5.3 <=6.5 % Annual BMP Blood Test Collection Time: 12/25/23 12:00 AM Result Value Ref Range Annual BMP Blood Test abstracted Depression Screening Collection Time: 02/24/24 12:00 AM Result Value Ref Range Depression Screening abstracted IMAGING: No recent imaging IMPRESSION: 1. Other secondary hypertension 2. Obesity (BMI 30.0-34.9) 3. Irritant contact dermatitis, unspecified trigger 4. Mixed hyperlipidemia 5. Encounter for screening mammogram for malignant neoplasm of breast 6. Anxiety and depression 7. Screening for malignant neoplasm of colon Assessment & Plan 1. Anxiety and depression: Stable. - Controlled with psychiatrist at [facility]. - Satisfied with current treatment plan. - She is on Zoloft 100 mg daily. 2. Hypertension. - BP 132/78. - Continue amlodipine-benazepril 5-10 mg daily. - Encourage consistent BP monitoring. 3. Weight management. - Prescription for Wegovy sent to pharmacy. - Start once available. - Increasing physical activity through walking and swimming. 4. Contact dermatitis. - Rash improving, likely contact dermatitis. - Avoid known irritants, monitor symptoms. - Using Benadryl and small dose of prednisone for relief. 5. Nicotine dependence. - Transition to nicotine-free vapes as step towards quitting. - Exploring nicotine-free vape options. 6. Health maintenance. - Overdue for mammogram and colonoscopy. - Order Cologuard test, colonoscopy if positive. - Radiology to schedule mammogram. - History of internal hemorrhoids, difficulty with laxatives. Follow-up - Follow-up in 6 weeks to monitor progress and side effects of Wegovy. I have obtained verbal consent from Louisa Deleon prior to the recording. I have advised Yesika that she may refuse the recording and require the recording to be turned off at any time during this encounter. All questions and concerns were addressed. Louisa Deleon verbalizes understanding and agrees with this treatment plan. Patient was reminded to call or return to the office if any new or existing problems arise. Orders Placed This Encounter Procedures MG Mammo Digital Screening w Derick bilat Cologuard?? colon cancer screening MG MAMMO DIGITAL SCREENING W DERICK BILAT LEE Cunningham on 12/14/2024 at 12:27 PM EDT Today's documentation was made using voice recognition software.This note may contain grammatical errors secondary to this software. documented in this encounter Plan of Treatment Scheduled Orders Name Type Priority Associated Diagnoses Orde r Schedule MG Mammo Digital Screening w Derick bilat Imaging Routine Encounter for screening mammogram for malignant neoplasm of breast 1 Occurrences starting 12/14/2024 until 12/14/2025 Cologuard colon cancer screening Lab Routine Screening for malignant neoplasm of colon 1 Occurrences starting 12/14/2024 until 12/14/2025 documented as of this encounter Visit Diagnoses Diagnosis Other secondary hypertension- Primary Obesity (BMI 30.0-34.9) Irritant contact dermatitis, unspecified trigger Mixed hyperlipidemia Encounter for screening mammogram for malignant neoplasm of breast Anxiety and depression Screening for malignant neoplasm of colon Tobacco use disorder documented in this encounter Additional Health Concerns Assessment Noted Time PHQ-9 Depression Total Score: 14 025 1:29 PM EDT documented as of this encounter Care Teams Home Therapy Clinician Relationship Specialty Start Date End Date Kishore Dockery MD [address] [place] [id number] PCP - General 05/05/23 documented as of this encounter
--- OUTSIDE RECORDS SUMMARY | 2024-12-14 15:47 | XMS_ITS | Clinical Summary ---
Author Organization [facility] Address [address] [place] [address] Care Team Providers Care Spindle Repairer Name Role Phone Beba Trujillo MD Primary Care Provider [phone] Allergies Active Allergy Reactions Criticality Noted Date [...] 84 07/30/2022 2:33 PM EST Temperature 36.8 C (98.3 F) 07/30/2022 2:33 PM EST Respiratory Rate - - Oxygen Saturation 100% [...] 01/13/2024 01/12/2014, 08/20/2010, 02/26/2006 Influenza Vaccine (#1) 2025 2, 05/20/2016, 02/22/2014, Additional history exists Pneumococcal Vaccine Aged Out No long er eligible based on patient's age to complete this topic RSV Ped < 20 months Aged Out No longe r eligible based on patient's age to complete this topic Care Teams Spindle Repairer Relationship Specialty Start Date End Date Beba Trujillo MD PCP - General Internal Medicine 07/30/22
[2024-12-14 15:49] VITALS: PULSE 104; O2SAT 97
--- NOTE | 2024-12-14 15:49 | A.OFFVIS_ITS ---
Vital Signs 12/14/24 15:49 Height 5 ft 7 in Pulse 104 H Pulse Oximetry (%) 97 Intake Visit Reasons: MAT visit Allergies Penicillins (PENICILLINS) Allergy (Severe, Verified 12/14/24 15:50) HIVES Sulfa (Sulfonamide Antibiotics) Allergy (Unknown, Verified 12/14/24 15:50) Unknown Medication List - Last Reconciled 12/14/24 by FERNANDO SantillanC amlodipine-benazepril 5-10 mg 1 cap PO DAILY buprenorphine-naloxone 5.7-1.4 mg (Zubsolv) 1 tab sublingual DAILY 30 days clonazepam (Klonopin) 0.5 mg PO BEDTIME clonidine HCl 0.1 mg PO BEDTIME mirtazapine 7.5 mg PO BEDTIME sertraline 50 mg PO DAILY HPI Comments Details: The patient is a 44-year-old female who presents for f/u re: substance use disorder in sustained remission. Reports feeling stable on buprenorphine- naloxone 5.7-1.4 mg (Zubsolv) and denies side effects or concerns. Denies opiates, alcohol, cigarette or marijuana use. Does report vaping and is actively working towards reducing frequency. 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 The focus of the divorce is reaching an amicable parenting schedule with soon to be ex- for 10-year-old daughter. Review of Systems Const All systems reviewed & are unremarkable except as noted in HPI and below Physical Exam Vital Signs: Last Vital Signs Pulse 104 H 12/14/24 15:49 Pulse Ox 97 12/14/24 15:49 Const General: cooperative Psych Appearance: well kempt Mental Status: mental status grossly normal Speech and movement: Normal speech and movement present Affect: Animated affect present Attitude: cooperative Thought process: Normal thought process present Thought content: Normal thought content present Insight: Good insight present (Psych) Judgement: Good judgement present (Psych) Assessment & Plan Assessment & Plan (1) Opioid use disorder, moderate, in sustained remission: Comment: She is doing well,no cravings Code(s): F11.21 - Opioid dependence, in remission Category: Medical Plan The plan of care is to continue with buprenorphine-naloxone 5.7-1.4 mg (Zubsolv) sublingual-daily. Medications: Refilled buprenorphine-naloxone 5.7-1.4 mg (Zubsolv) 1 tab sublingual DAILY 30 tabs 1RF 30 days Patient Instructions: - Continue with buprenorphine-naloxone 5.7-1.4 mg (Zubsolv) one tablet sublingual-daily. - Follow up in two months, or sooner if needed. - Call with questions, concerns, or to report side effects. - The patient verbalized understanding and agreed with plan of care. Coding Level of Care Code Est Pt Level 3 (25934) Diagnoses Opioid use disorder, moderate, in sustained remission F11.21
== END 2024-12-14 16:26 | disposition home or self-care (01) ==
LOC: HO.HCC 15:44
PROVIDERS: PCP Internal Medicine; Visit Provider Clinical Nurse Specialist Psychiatric/Mental Health
DX: F11.21 Opioid dependence, in remission (principal)
CPT/HCPCS: 99213

== ENCOUNTER → 2024-12-14 15:44 | Outpatient (BNVA) | payer OTHER, SELFPAY | PROVIDERS: PCP Internal Medicine; Visit Provider Clinical Nurse Specialist Psychiatric/Mental Health | DX: F11.21 Opioid dependence, in remission (principal) | CPT/HCPCS: 99212 ==

== ENCOUNTER 2025-02-08 11:02 | Outpatient (AMB) | payer OTHER, SELFPAY ==
[2025-02-08 11:06] VITALS: PULSE 66; O2SAT 99
--- NOTE | 2025-02-08 11:06 | MHC.OFFVIS ---
Vital Signs 02/08/25 11:06 Height 5 ft 7 in Pulse 66 Pulse Oximetry (%) 99 Intake Visit Reasons: MAT Intake Note: The patient did not want her B/P to be measured. Allergies Penicillins (PENICILLINS) Allergy (Severe, Verified 12/14/24 15:50) HIVES Sulfa (Sulfonamide Antibiotics) Allergy (Unknown, Verified 12/14/24 15:50) Unknown HPI Comments Details: A 44-year-old female presents for a follow-up related to PRABHJOT in sustained remission with use of Zubsolv daily. Denies use of opiates, alcohol, and other substances. Reports continuing to work and coping with divorce process. As established mental [facility] treatment with [facility]. Review of Systems Const All systems reviewed & are unremarkable except as noted in HPI and below Physical Exam Vital Signs: Last Vital Signs Pulse 66 02/08/25 11:06 Pulse Ox 99 02/08/25 11:06 Const General: cooperative Assessment & Plan Assessment & Plan (1) Opioid use disorder, moderate, in sustained remission: Comment: She is doing well,no cravings Code(s): F11.21 - Opioid dependence, in remission Category: Medical Plan The plan of care is to continue with Zubsolv daily and follow-up in 3 months or sooner if needed. Medications: Refilled buprenorphine-naloxone 5.7-1.4 mg (Zubsolv) 1 tab sublingual DAILY 30 tabs 2RF 30 days Patient Instructions: - Continue with Zubsolv as prescribed. - Follow-up in 3 months or sooner if needed. - Call with questions, concerns, or to report side effects/new onset of symptoms to [facility]. - The patient verbalized understanding and agreed with plan of care. Coding Level of Care Code Est Pt Level 3 (58349) Diagnoses Opioid use disorder, moderate, in sustained remission F11.21
--- OUTSIDE RECORDS SUMMARY | 2025-02-08 14:04 | XMS_ITS | Encounter Summary ---
Author Organization [facility] Address [address] [place] [address] Care Team Providers Care Coin Machine Mechanic Name Role Phone Kishore Dockery MD Primary Care Provider [phone] Reason for Referral * Consultation (Routine) - Denied Specialty Diagnoses / Procedures Referred By Moises summers Referred To Contact Family Nutrition Services / Bariatrics Diagnoses Obesity (BMI 30.0-34.9) Other secondary hypertension Agueda Matos PA [address] [place] [address] Phone: tel: fax: Bariatric Surgery [address] [place] [address] Phone: tel: fax: Referral ID Status Reason Start Date Expiration Date V isits Requested Visits Authorized [id number] Denied Specialty Services Required 01/16/2025 01/16/2026 1 0 Reason for Visit * Reason Onset Date Comments prior auth 01/09/2025 Encounter Details Date Type Department Care Team ([facility] st Contact Info) Description 01/09/2025 Telephone Adult Medicine [address] [phone] Dulce Maria Andujar LPN Social History Tobacco Use Types Packs/Day Years Used Date Smoking Tobacco: Every Day Cigarettes Started: 06/01/1999; Last attempted to quit: 06/01/2021 Smokeless Tobacco: Current Alcohol Use Standard Drinks/Week Comments Not Currently [...] care for your loved ones. For example, director child development center or elderly care for an older adult? [...] AM EST documented as of this encounter Ordered Prescriptions Prescription Sig Dispense Quantity Refills Last Filled Start Date End Date tirzepatide, weight loss, (Zepbound) 2.5 mg/0.5 mL injectionIndicatio ns:Obesity (BMI 30.0-34.9),Other secondary hypertension Inject 0.5 mL (2.5 mg total) under the skin every 7 (seven) days. 2 mL 01/12/2025 ondansetron (ZOFRAN) 4 mg tablet Take 1 tablet (4 mg total) by mouth every 8 (eight) hours if needed for nausea or vomiting for up to 7 days. 20 tablet 01/12/2025 documented in this encounter Progress Notes * LEE Cunningham - 01/13/2025 10:25 AM EDT Noted, I will inform the patient. Thank you. * Constanza Gonzalez MA - 01/13/2025 9:36 AM EDT PA for zepbound denied because the contraindication for phentermine is not true contraindication. * Constanza Gonzalez MA - 01/12/2025 11:21 AM EDT PA for zepbound initiated today by phone with jannie Case [id number] Dx Obesity Clinicals notes uploaded and sent to insurance company awaiting for insurance determination. * Constanza Gonzalez MA - 01/12/2025 11:06 AM EDT Perfect I going to start doing the PA now Thanks .Please Reply Back to [facility] Name Constanza Gonzalez [facility] Prior Ext: [phone] * LEE Cunningham - 01/12/2025 10:55 AM EDT Called and spoke to the patient to discuss her options. She had tried phentermine in the past and prefers the GLP medications for weight loss due to risk of blood pressure increase with phentermine. I have sent in prescription for the Zepbound. Please let me know if you need anything in addition PA. Thanks. * Constanza Gonzalez MA - 01/12/2025 9:56 AM EDT I just called jannie yes is a new policy and the preferred one is zepbound . We can tried to do the PA for wegovy but there a possibility that going to be denied * LEE Cunningham - 01/12/2025 9:11 AM EDT Joseluis Pichardo, Is this a new policy for Jannie? Patient has been on Wegovy since January. * Kylee Nicole - 01/11/2025 11:59 AM EDT Wegovy is not the plans preferred medication. The preferred medication is Zepbound but it will deny if the patient has not tried and failed phentermine. * Dulce Maria Andujar LPN - 01/09/2025 1:26 PM EDT [facility] PA req for Wygovy BIN [id number] [facility] ID [id number] documented in this encounter Plan of Treatment Scheduled Referrals Name Type Priority Associated Diagnoses Orde r Schedule Ambulatory referral to Weight Management Outpatient Referral Routine Obesity (BMI 30.0-34.9) Other secondary hypertension 1 Occurrences starting 01/16/2025 until 01/16/2026 documented as of this encounter Visit Diagnoses Diagnosis Obesity (BMI 30.0-34.9)- Primary Other secondary hypertension documented in this encounter Discontinued Medications Medication Sig Discontinue Reason Start Date End Da te semaglutide (Wegovy) 0.25 mg/0.5 mL injection penIndications:Other secondary hypertension,Obesity (BMI 30.0-34.9),Mixed hyperlipidemia Inject 0.25 mg under the skin every 7 (seven) days. Cost of medication 12/14/2024 01/12/2025 documented as of this encounter Additional Health Concerns Assessment Noted Time PHQ-9 Depression Total Score: 14 025 1:29 PM EDT documented as of this encounter Care Teams Coin Machine Mechanic Relationship Specialty Start Date End Date Kishore Dockery MD [address] [place] [phone] PCP - General 05/05/23 documented as of this encounter
--- OUTSIDE RECORDS SUMMARY | 2025-02-08 14:04 | XMS_ITS | Clinical Summary ---
Author Organization [facility] Address [address] [place] [address] Care Team Providers Care Audiovisual Aids Technician Name Role Phone Beba Trujillo MD Primary Care Provider Allergies Active Allergy [...] age to complete this topic Care Teams Audiovisual Aids Technician Relationship Specialty Start Date End Date Beba Trujillo MD PCP - General Internal Medicine 07/30/22
--- OUTSIDE RECORDS SUMMARY | 2025-02-08 14:04 | XMS_ITS | Clinical Summary ---
Author Organization [address] Address [address] [place] [address] Phone Care Team Providers Care Chief Human Resources Officer Name Role Phone Kishore Dockery MD Primary [...] mouth 1 (one) time each day. Active mirtazapine (REMERON) 7.5 mg tablet TAKE 1 TABLET BY MOUTH EVERY DAY AT BEDTIME FOR 30 DAYS 03/25/20 23 Active buprenorphine-nal oxone (Zubsolv) 8.6-2.1 mg tablet, sublingual DISSOLVE 1 T UNT QD 02/23/20 20 Active copper (ParaGard T 380A) 380 square mm IUD 1 each by intrauterine route. 06/08/19 19 Active cloNIDine (CATAPRES) 0.1 mg tablet Take 1 tablet (0.1 mg total) by mouth 2 (two) times a day if needed. 03/30/20 24 Active Zoloft 50 mg tablet Take 1 tablet (50 mg total) by mouth 1 (one) time each day. 04/03/20 24 Active ibuprofen (ADVIL,MOTRIN) 600 mg tablet TAKE 1 TABLET BY MOUTH EVERY 8 HOURS IF NEEDED FOR MODERATE PAIN. FOR PAIN 90 tablet 1 12/23/19 25 Active amLODIPine-benaze pril (LotreL) 5-10 mg per capsule Take 1 capsule by mouth 1 (one) time each day. 90 capsule 1 12/23/19 25 026 Active tirzepatide, weight loss, (Zepbound) 2.5 mg/0.5 mL injectionIndicati ons:Obesity (BMI 30.0-34.9),Other secondary hypertension Inject 0.5 mL (2.5 mg total) under the skin every 7 (seven) days. 2 mL 01/13/20 25 Active semaglutide (Wegovy) 0.25 mg/0.5 mL injection penIndications:Ot her secondary hypertension,Obes ity (BMI 30.0-34.9),Mixed hyperlipidemia Inject 0.25 mg under the skin every 7 (seven) days. 4 Pen 12/15/19 25 025 Discontinu ed(Cost of medication ) ondansetron (ZOFRAN) 4 mg tablet Take 1 tablet (4 mg total) by mouth every 8 (eight) hours if needed for nausea or vomiting for up to 7 days. 20 tablet 01/13/20 25 025 Active Problems Problem Noted Date Diagnosed Date Vitamin D deficiency 12/09/2023 HTN (hypertension) 02/13/2023 Mixed obsessional thoughts and acts 02/18/2018 Drug overdose 10/07/2017 Overview (04/19/2024): ER visit after her friend gave her some pills . + amphetamines with tox screen at ER. Elevated liver enzymes 05/21/2016 Bilateral carpal tunnel syndrome 05/20/2016 Anxiety 09/27/2012 Constipation 09/27/2012 Depression 09/27/2012 Opiate dependence (CMS/HCC V24, [facility] V28) Insomnia 03/15/2010 Moderate cervical dysplasia, histologically [...] Encounters Date Type Department Care Team Description 01/09/2025 Telephone Adult Medicine [address] [phone] Dulce Maria Andujar LPN 12/22/2024 Telephone [facility] [address] [place] [phone] Kishore Dockery MD 12/14/2024 10:45 AM EDT Office Visit Adult Medicine [address] [phone] Agueda Matos PA Other secondary hypertension (Primary Dx); Obesity (BMI 30.0-34.9); Irritant contact dermatitis, unspecified trigger; Mixed hyperlipidemia; Encounter for screening mammogram for malignant neoplasm of breast; Anxiety and depression; Screening for malignant neoplasm of colon; Tobacco use disorder from Last 3 Months Immunizations Name Administration Dates Next Due H1N1 Inj Preservative Free 04/12/2009 Influenza Quadravalent, MDCK , 0.5ml, preservative free (Flucelvax) 6mo and older 04/01/2023,03/17/2022 Influenza trivalent, 0.5mL, preservative free (Fluarix; FluLaval; Fluzone) ages 6mo and older (Afluria) 3 years and older 05/20/2016,02/22/2014,03/31/2012,2009 MMR, measles mumps and rubel la Live (Priorix; M-M-R II) mo and older 11/12/2006 PPD Test 11/12/2006 Td Tetanus diptheria (Tdvax) 7yo and older 02/26/2006 Tdap Tetanus diptheria acell ular pertussis (Boostrix; Adacel) 7yo and older 01/12/2014,08/20/2010 Surgical History Surgery Date Site/Laterality Comments CHOLECYSTECTOMY PROCEDURE: [place] LAPAROSCOPY SURG CHOLECYSTECTOMY; COMMENT: 2008 LASER ABLATION OF THE CERVIX 01/21/10 PROCEDURE: [place] CAUTERY CERVIX LASER ABLATION; COMMENT: Laser vaporization HGSIL OTHER SURGICAL HISTORY PROCEDURE: HISTORICAL D&C Medical History Medical History Date Comments Esophageal reflux DX:Esophageal reflux Anxiety state, unspecified DX:An xiety state, unspecified; COMMENT: sees Therapist/Psychiatrist Opiate dependence ([facility] V 24, [facility] V28) 05/26/2011 DX:Opiate dependence ([facility]) Family History Medical History Relation Name Comments [...] care for your loved ones. For example, childhood teacher or elderly care for an older adult? [...] Mass Index 32.64 12/14/2024 10:46 AM EDT Plan of Treatment Health Maintenance Due Date Last Done Comments Breast Cancer Screening 1978 Hepatitis A Vaccines (1 of 2 - Risk 2-dose series) 1997 Hepatitis B Vaccines (1 of 3 - 19+ 3-dose series) 1997 Pneumococcal Vaccine: Pediatrics (0 to 5 Years) and At-Risk Patients (6 to 49 Years) (1 of 2 - PCV) 1997 HIV Screening 05/10/2022 DTaP,Tdap,and Td Vaccines (4 - Td or Tdap) 01/13/2024 01/12/2014, 08/20/2010, 02/26/2006 Hypertension/CHF/CAD Annual BMP Blood Test 12/24/2024 12/25/2023, 12/25/2023, 12/09/2023 COVID-19 Vaccine ( season) 2025 11/22/2020, 10/30/2020 Influenza Vaccine (#1) 2025 , 03/17/2022, 05/20/2016, Additional history exists Social Influencers of Health Screening 04/19/2025 04/19/2024 Colorectal Cancer Screening: FIT-DNA (Cologuard) 01/08/2028 01/07/2025 Cervical Cancer Screening: HPV 02/14/2028 02/13/2023 Cholesterol Screening (Lipid Panel) 12/24/2028 12/25/2023, 12/25/2023 MMR Vaccines Aged Out 11/12/2006 No longer eligi ble based on patient's age to complete this topic Hepatitis C Screening Completed 03/17/2022 Depression Screening Completed 12/13/2024, 02/24/20 HIB Vaccines Aged Out No longer eligi [...] Procedure Name Priority Date/Time Associated Diagnosis Comments LAB COLOGUARD COLON CANCER SCREEN Routine 01/07/2025 11:30 AM EDT Screening for malignant neoplasm of colon DEPRESSION SCREENING Routine 02/24/2024 ANNUAL BMP BLOOD TEST Routine 12/25/2023 LIPID PANEL Routine 12/25/2023 HPV Routine 02/13/2023 HEPATITIS C SCREENING Routine 03/17/2022 from Last 3 Months or Most Recently Relevant to Health Maintenance Results * Cologuard?? colon cancer screening (01/07/2025 11:30 AM EDT) COLOGUARD Negative Negative [facility] Comment: The Cologuard (TM) test was performed on this specimen. NEGATIVE TEST RESULT. A negative Cologuard result indicates a low likelihood that a colorectal cancer (CRC) or advanced adenoma (adenomatous polyps with more advanced pre-malignant features) is present. The chance that a person with a negative Cologuard test has a colorectal cancer is less than 1 in 1500 (negative predictive value >99.9%) or has an advanced adenoma is less than 5.3% (negative predictive value 94.7%). These data are based on a prospective cross-sectional study of 10,000 individuals at average risk for colorectal cancer who were screened with both Cologuard and colonoscopy. (Sol Beckman al, N Engl J Med 2014;370(14):1286- 1297) The normal value (reference range) for this assay is negative. COLOGUARD RE-SCREENING RECOMMENDATION: Periodic colorectal cancer screening is an important part of preventive healthcare for asymptomatic individuals at average risk for colorectal cancer. Following a negative Cologuard result, the [place] [employer] Society and U.S. Multi-Society Task Force screening guidelines recommend a Cologuard re-screening interval of 3 years. References: [place] [employer] Guideline for Colorectal Cancer Screening: https://www.cancer.org/cancer/jgsye-kbauib-gjtbne/ewrfeitim-ellivbytq-nvgxlht/ac s-rec ommendations.html.; Nitin DK, Jacqueline ROMANO, Kaity TothK, Colorectal Cancer Screening: Recommendations for Physicians and Patients from the U.S. Multi-Society Task Force on Colorectal Cancer Screening , Am J Gastroenterology 2017; 112:0843-6957. TEST DESCRIPTION: Composite algorithmic analysis of stool DNA-biomarkers with hemoglobin immunoassay. Quantitative values of individual biomarkers are not reportable and are not associated with individual biomarker result reference ranges. Cologuard is intended for colorectal cancer screening of adults of either sex, 45 years or older, who are at average-risk for colorectal cancer (CRC). Cologuard has been approved for use by the U.S. FDA. The performance of Cologuard was established in a cross sectional study of average-risk adults aged 50-84. Cologuard performance in patients ages 45 to 49 years was estimated by sub-group analysis of near-age groups. Colonoscopies performed for a positive result may find as the most clinically significant lesion: colorectal cancer [4.0%], advanced adenoma (including sessile serrated polyps greater than or equal to 1cm diameter) [20%] or non- advanced adenoma [31%]; or no colorectal neoplasia [45%]. These estimates are derived from a prospective cross-sectional screening study of 10,000 individuals at average risk for colorectal cancer who were screened with both Cologuard and colonoscopy. (Sol Molina, N Engl J Med 2014;370(14):6962-4179.) Cologuard may produce a false negative or false positive result (no colorectal cancer or precancerous polyp present at colonoscopy follow up). A negative Cologuard test result does not guarantee the absence of CRC or advanced adenoma (pre-cancer). The current Cologuard screening interval is every 3 years. ([place] [employer] and U.S. Multi-Society Task Force). Cologuard performance data in a 10,000 patient pivotal study using colonoscopy as the reference method can be accessed at the following location: www.[employer].com/results. Additional description of the Cologuard test process, warnings and precautions can be found at www.cologuard.com. Stool 01/07/2025 11:3 0 AM EDT 01/08/2025 10:22 PM EDT Result [facility] Agueda HOWARD LAB MOLECULAR DIAGNOSTIC S ORDERABLES Final Result Performing Organization Address City/State/[facility] Co de Phone Number [employer] [place] [address] [facility] [place] [address] * Depression Screening (02/24/2024) [facility] Depression Screening abstracted Result [facility] Provider HEALTH MAINTENANCE Final Result * Annual BMP Blood Test (12/25/2023) [facility] Annual BMP Blood Test abstracted Result [facility] Final Result * (ABNORMAL) Lipid panel (12/25/2023) [facility] LDL/HDL Ratio 4 0 - 4 Triglycerides 156(A) 0 - 150 mg/dL Cholesterol 196 0 - 200 mg/dL HDL 49 >=40 mg/dL LDL Cholesterol 116(A) 0 - 100 mg/dL Blood Venous blood specimen / Unknown Result [facility] Provider LAB BLOOD ORDERABLES Oly l Result * Cervical Cancer Screening: HPV (02/13/2023) [facility] Cervical Cancer Screening: HPV negative, abstracted Result [facility] HEALTH MAINTENANCE Final Result * Hepatitis C Screening (03/17/2022) Hepatitis C Screening abstracted us Historical Provider HEALTH MAINTENANCE Final Result from Last 3 Months or Most Recently Relevant to Health Maintenance Insurance [facility] [place] [address] Care Teams Chief Human Resources Officer Relationship Specialty Start Date End Date Kishore Dockery MD [address] [place] [phone] PCP - General 05/05/23
== END 2025-02-08 13:50 | disposition home or self-care (01) ==
PROVIDERS: PCP Internal Medicine; Visit Provider Clinical Nurse Specialist Psychiatric/Mental Health
DX: F11.21 Opioid dependence, in remission (principal)
CPT/HCPCS: 99213

== ENCOUNTER → 2025-02-08 11:02 | Outpatient (BNVA) | payer OTHER, SELFPAY | PROVIDERS: PCP Internal Medicine; Visit Provider Clinical Nurse Specialist Psychiatric/Mental Health | DX: F11.21 Opioid dependence, in remission (principal) | CPT/HCPCS: 99212 ==